=== PATIENT | female | born 1990 | race African-American/Black ===

== ENCOUNTER 2016-11-26 16:38 | Emergency (ER) | payer MEDICAID ==
[~2016-11-26] VITALS: Ht 160 cm; Wt 70.0 kg
[~2016-11-26 16:38] MED LIST: BACT800T5 PO; CEPH500C3 PO; IBUP800 PO
[2016-11-26 16:42] VITALS: BP 124/75; PULSE 90; RESP 14; TEMP 98.2; O2SAT 98
--- NOTE | 2016-11-26 19:24 | PD ---
HPI Chief Complaint: Fall Time Seen by Provider: 19:21 Travel History International Travel<30 days: No Contact w/Intl Traveler<30days: No Traveled to known affect area: No History of Present Illness HPI Patient is a 26-year-old female presenting to emergency department for evaluation of right lower leg pain. Patient states she tripped and tried to brace the fall, subsequently pulling the muscle. She states that she is able to walk on her leg, her pain is described as sore. She rates her pain a 3 out of 10. She denies any numbness, tingling, weakness. She denies any bruising. She denies any other injury related to her fall. There are no alleviating factors, pain is exacerbated slightly with walking but again she is able to bear weight without difficulty. [facility] Past Medical History Medical History: Denies Significant Hx ?: Unknown : 0 Social History Alcohol Use: No Tobacco Use: No Substance Use: No Allergies-Medications (Allergen,Severity, Reaction): Coded Allergies: No Known Allergies (Verified , 03/26/15) Reported Meds & Prescriptions Reported Meds & Active Scripts Active Motrin 800 Mg Tab (Ibuprofen) 800 Mg Tab 800 Mg PO Q8H PRN 10 Days Keflex (Cephalexin Monohydrate) 500 Mg Cap 500 Mg PO BID Bactrim DS (Sulfamethoxazole-Trimethoprim DS) 1 Tab Tab 1 Tab PO BID 10 Days Review of Systems Except as stated in HPI: all other systems reviewed are Neg Musculoskeletal: Positive: Myalgias Physical Exam Narrative GENERAL: Well-developed, well-nourished, alert female. Resting comfortably in no acute distress. SKIN: Warm and dry. No contusions or erythema noted to right lower leg. HEAD: Normocephalic. EYES: No scleral icterus. No injection or drainage. NECK: Supple, trachea midline. No JVD or lymphadenopathy. CARDIOVASCULAR: Regular rate and rhythm without murmurs, gallops, or rubs. RESPIRATORY: Breath sounds equal bilaterally. No accessory muscle use. GASTROINTESTINAL: Abdomen soft, non-tender, nondistended. MUSCULOSKELETAL: No cyanosis, or edema. Full range of motion in right knee and ankle. Negative Homans sign. No obvious deformities. BACK: Nontender without obvious deformity. No CVA tenderness. Data Data Last Documented VS Vital Signs Date Time Temp Pulse Resp B/P (MAP) Pulse Ox O2 Delivery O2 Flow Rate FiO2 11/26/16 16:42 98.2 90 14 124/75 (91) 98 MDM Medical Decision Making Medical Screen Exam Complete: Yes Emergency Medical Condition: No Interpretation(s) Vital Signs Date Time Temp Pulse Resp B/P (MAP) Pulse Ox O2 Delivery O2 Flow Rate FiO2 11/26/16 16:42 98.2 90 14 124/75 (91) 98 Differential Diagnosis Sprain versus strain versus spasm versus other Narrative Course Patient is a 26-year-old female presenting for evaluation of right lower leg pain after a slip and fall. Physical exam appears most consistent with muscle strain. Patient is neurovascularly intact with no focal deficits noted. Patient's vital signs are stable. Patient was encouraged to alternate heat and ice to affected area and take [id number] ibuprofen or acetaminophen as needed and as directed for pain. She was also encouraged to continue gentle range of motion exercises. Patient verbalized understanding of these instructions. A medical screening exam was performed: At the time of evaluation the presenting medical condition was determined not to be of an emergent nature. The patient was given the option of receiving additional care, but declined. Patient was given options for additional community resources from which to obtain care. The Patient Has Been advised to seek medical attention for their presenting complaint. The patient has been advised to return to the ER at any time if an emergent condition develops. Diagnosis Primary Impression: Encounter for medical screening examination Condition: Roxi Mccloud Nov 26, 2016 19:24
== END 2016-11-26 19:31 | disposition left against medical advice (07) ==
LOC: NEPK 16:38
DX: M79.661 Pain in right lower leg (principal)
CPT/HCPCS: 99281